=== PATIENT | female | born 1945 | race Caucasian/White ===

== ENCOUNTER 2018-07-21 05:57 | Day surgery (SDC) | payer OTHER ==
[~2018-07-21 05:57] MED LIST: ATORVASTATIN CA10 MG PO; EMTRICITABINE PO; EVISTA60 MG PO; GLIMEPIRIDE1 MG PO; IBERSARTAN PO; PROTONIX20 MG PO; TENOFOVIR ALAFENAMIDE PO; [UNRECOGNIZED DRUG - OTHER] PO
== END 2018-07-21 09:40 | disposition home or self-care (01) ==
LOC: CIR.AMB 05:57
DX: D21.12 Benign neoplasm of connective and other soft tissue of left upper limb, including shoulder (principal)